=== PATIENT | female | born 1975 | race Caucasian/White ===

== ENCOUNTER 2023-02-12 07:30 | Inpatient (IN) | payer SELFPAY ==
[2023-02-12] VITALS (17 sets, daily range): BP systolic 102–124; BP diastolic 65–84; PULSE 74–120; RESP 14–20; TEMP 36.5–37.7; O2SAT 93–100; BMI 23.3
--- NOTE | 2023-02-12 07:44 | W.ED.ABDPA2 ---
Documented by User: OMER Rasheed 02/12/23 09:41 HPI - Abdominal Pain General: Chief Complaint: Abdominal Pain Stated Complaint: abd pain, n/v Time Seen by Provider: 02/12/23 07:31 Source: patient Mode of arrival: ambulatory Limitations: no limitations History of Present Illness: Patient is a very nice 57-year-old female presents to ED today along with her for evaluation of right-sided abdominal pain. She states symptoms started yesterday and by yesterday evening she was significantly uncomfortable. She states since then she has developed nausea, vomiting, and intermittent episodes of diarrhea. No fevers. Patient states she does have a history of remittent bowel obstructions none of which ever requiring surgery. The only surgery to her abdomen has been previous sections. She reports no chronic medical history. MD elicited complaint: abdominal pain Pertinent past history: none Onset (ago): day(s) (yesterday) Pain Consistency: constant Location: RUQ and RLQ Severity: severe Quality: cramping Radiation: none Migration to: no migration Exacerbating factors: nothing Relieving factors: nothing Associated Symptoms: Reports diarrhea, nausea and vomiting; Denies chills, dysuria, fever(s), hematochezia, hematemesis and melena Related Data: Patient : No Review of Systems Const: Denies: fever(s), chills, body aches, fatigue or malaise Card: Denies: chest pain Resp: Denies: dyspnea GI: Reports: abdominal pain, nausea, vomiting and diarrhea; Denies: hematemesis, hematochezia or melena : Denies: flank pain, difficulty voiding, dysuria, urinary frequency, urinary urgency, urinary hesitancy or pelvic pain Musc: Denies: neck pain, back pain, extremity pain or joint pain Skin/Breast: Denies: rash Neuro: Denies: headache(s), numbness in extremities, weakness in extremities, sensory changes or dizziness Physical Exam Const: COMMON NORMALS: no acute distress, average body habitus, patient oriented x3, no limitations, healthy appearing, alert and well nourished ORIENTATION/CONSCIOUSNESS: Yes awake, Yes oriented to person, Yes oriented to place and Yes oriented to time HENMT: COMMON NORMALS: normocephalic and atraumatic HEAD & SCALP: normal to inspection, normocephalic and atraumatic Eye: COMMON NORMALS: no scleral icterus Resp: COMMON NORMALS: normal respiratory effort and clear to auscultation bilaterally AUSCULTATION: clear to auscultation bilaterally Cardio: COMMON NORMALS: regular rate and regular rhythm RATE: regular rate RHYTHM: regular rhythm GI: COMMON NORMALS: Normal to inspection, nondistended, normoactive bowel sounds present, Soft to palpation, No hepatosplenomegaly present and no masses INSPECTION: Yes normal to inspection AUSCULTATION: Yes Hypoactive bowel sounds present PALPATION: Yes Soft to palpation, Yes Tenderness to palpation present (GI) (throughout R side of abdomen), Yes Guarding due to palpation present (GI), No Rigid due to palpation and Yes No hepatosplenomegaly present : COMMON NORMALS: Yes no CVA tenderness BLADDER/KIDNEY EXAM: Yes no CVA tenderness Back/Pelvis: COMMON NORMALS: no CVA tenderness, thoracic and lumbar spine normal to inspection, no thoracic nor lumbar tenderness and thoraco-lumbar ROM normal Extremity: COMMON NORMALS: normal to inspection GENERAL: Yes normal exam except as noted Neuro: ANGIE COMA SCALE: document GCS findings [place] coma scale eye opening: Spontaneous [place] coma scale verbal response: Orientated Angie coma scale motor response: Obey commands [place] coma scale total score: 15 COMMON NORMALS: patient oriented x3, moves all extremities, no focal motor deficits and no sensory deficits noted SENSORIUM/ORIENTATION: Yes alert, Yes oriented to person, Yes oriented to place and Yes oriented to time Skin: COMMON NORMALS: no rashes or lesions noted GENERAL SKIN EXAM: no rashes or lesions noted Course Consultations: Consultation #1: Dr. Vizcarra-accepts admission Vital Signs: Vital signs: Vital Signs Temperature 97.7 F 02/12/23 09:11 Pulse Rate 81 02/12/23 09:11 Respiratory Rate 14 02/12/23 09:11 Blood Pressure 124/84 02/12/23 09:11 Pulse Oximetry 100 02/12/23 09:11 Oxygen Delivery Me thod Room Air 02/12/23 09:11 MDM - Abdominal Pain Medical Decision Making Patient with appendicitis on her CT scan. White count is 16,000 with a normal lactate. Remainder of labs are fairly unremarkable. Vital signs are stable. She was started on IV Zosyn and I have spoken to Dr. Vizcarra for admission. Chart reviewed and patient discussed with midlevel. Agree with assessment and plan. Lab Data 02/12/23 07:55 02/12/23 07:55 Labs/Radiology: Laboratory Results WBC 16.07 10^3/uL (3.29-11.43) H 02/12/23 07:55 RBC 4.49 10^6/uL (3.85-5.65) 02/12/23 07:55 Hgb 12.90 g/dL (11.27-16.99) 02/12/23 07:55 Hct 39.1 % (36-47) 02/12/23 07:55 MCV 87.1 fl (85-98) 02/12/23 07:55 MCH 28.7 pg (27-33) 02/12/23 07:55 MCHC 33.0 g/dL (30-55) 02/12/23 07:55 RDW 12.9 % (12.1-15.1) 02/12/23 07:55 Plt Count 239 10^3/cmm (157-399) 02/12/23 07:55 MPV 10.5 fL (7.4-10.4) H 02/12/23 07:55 Neut % (Auto) 86.4 % 02/12/23 07:55 Lymph % (Auto) 4.5 % 02/12/23 07:55 [place] % (Auto) 8.2 % 02/12/23 07:55 Eos % (Auto) 0.1 % 02/12/23 07:55 Baso % (Auto) 0.4 % 02/12/23 07:55 Neut # (Auto) 13.89 10^3/uL (1.8-7.7) H 02/12/23 07:55 Lymph # (Auto) 0.7 10^3/uL (0.8-4.8) L 02/12/23 07:55 [place] # (Auto) 1.3 10^3/uL (0.2-0.9) H 02/12/23 07:55 Eos # (Auto) 0.0 10^3/uL (0.0-0.8) 02/12/23 07:55 Baso # (Auto) 0.1 10^3/uL (0.0-0.1) 02/12/23 07:55 Nucleated RBC % (auto) 0 % 02/12/23 07:55 Nucleated RBCs # 0.0 /100WBC 02/12/23 07:55 Sodium 133 mmol/L (136-145) L 02/12/23 07:55 Potassium 4.0 mmol/L (3.5-5.1) 02/12/23 07:55 Chloride 98 mmol/L (98-107) 02/12/23 07:55 Carbon Dioxide 23 mmol/L (22-29) 02/12/23 07:55 Anion Gap 16.0 (5-19) 02/12/23 07:55 BUN 7 mg/dL (6-20) 02/12/23 07:55 Creatinine 0.6 mg/dL (0.5-0.9) 02/12/23 07:55 GFR Calculation 106.3 mL/min (90-130) 02/12/23 07:55 Glucose 129 mg/dL (65-115) H 02/12/23 07:55 Calculated Osmolality 276 mOsm/kg (285-295) L 02/12/23 07:55 Lactic Acid 1.6 mmol/L (0.5-2.2) 02/12/23 07:55 Calcium 9.1 mg/dL (8.5-10.5) 02/12/23 07:55 Total Bilirubin 0.8 mg/dL (0.15-1.2) 02/12/23 07:55 AST 15 U/L (0-32) 02/12/23 07:55 ALT 13 U/L (0-33) 02/12/23 07:55 Alkaline Phosphatase 59 U/L (35-105) 02/12/23 07:55 Total Protein 6.9 g/dL (6.6-8.7) 02/12/23 07:55 Albumin 4.3 g/dL (3.5-5.2) 02/12/23 07:55 Globulin 2.6 g/dL (1.3-4.6) 02/12/23 07:55 Lipase 16 U/L (13-60) 02/12/23 07:55 HCG, Qual Negative (Negative) 02/12/23 07:55 Urine Color Dark yellow (Yellow) 02/12/23 08:00 Urine Appearance Cloudy (CLEAR) A 02/12/23 08:00 Urine pH 7 (5-7) 02/12/23 08:00 Ur Specific [place] 1.015 (1.005-1.030) 02/12/23 08:00 Urine Protein 1+ (Negative) H 02/12/23 08:00 Urine Glucose (UA) Norm (Normal) 02/12/23 08:00 Urine Ketones 3+ (Negative) H 02/12/23 08:00 Urine Blood Neg (Negative) 02/12/23 08:00 Urine Nitrate Negative (Negative) 02/12/23 08:00 Urine Bilirubin Neg (Negative) 02/12/23 08:00 Urine Urobilinogen Norm mg/dL (Negative) 02/12/23 08:00 Ur Leukocyte Esterase Negative (Negative) 02/12/23 08:00 Urine RBC 0-4 /hpf (0-2) H 02/12/23 08:00 Urine WBC 5-10 /hpf (0-5) H 02/12/23 08:00 Ur Squamous Epith Cells 15-25 /hpf (0-5) H 02/12/23 08:00 Amorphous Sediment Not Reportable 02/12/23 08:00 Urine Bacteria 1+ /hpf (NONE) H 02/12/23 08:00 Urine Mucus 3+ /hpf 02/12/23 08:00 Discharge Plan Discharge Patient Disposition: Admitted As Inpatient Clinical Impression: Acute appendicitis Condition: Stable Prescriptions: No Action No Known Home Medications Referrals: Trupti Hutton FNP [Primary Care Provider] - Coding Level of Care Code ED Electromedical Service Engineer for Chg Fwd Documented by User: Musa Ontiveros DO 02/12/23 09:39 HPI - Abdominal Pain General: Chief Complaint: Abdominal Pain Stated Complaint: abd pain, n/v Time Seen by Provider: 02/12/23 07:31 Physical Exam Neuro: ANGIE COMA SCALE: document GCS findings [place] coma scale total score: 15 Course Vital Signs: Vital signs: Vital Signs Temperature 97.7 F 02/12/23 09:11 Pulse Rate 81 02/12/23 09:11 Respiratory Rate 14 02/12/23 09:11 Blood Pressure 124/84 02/12/23 09:11 Pulse Oximetry 100 02/12/23 09:11 Oxygen Delivery Me thod Room Air 02/12/23 09:11 MDM - Abdominal Pain Medical Decision Making Patient with appendicitis on her CT scan. White count is 16,000 with a normal lactate. Remainder of labs are fairly unremarkable. Vital signs are stable. Chart reviewed and patient discussed with midlevel. Agree with assessment and plan. Lab Data 02/12/23 07:55 02/12/23 07:55 Labs/Radiology: Laboratory Results WBC 16.07 10^3/uL (3.29-11.43) H 02/12/23 07:55 RBC 4.49 10^6/uL (3.85-5.65) 02/12/23 07:55 Hgb 12.90 g/dL (11.27-16.99) 02/12/23 07:55 Hct 39.1 % (36-47) 02/12/23 07:55 MCV 87.1 fl (85-98) 02/12/23 07:55 MCH 28.7 pg (27-33) 02/12/23 07:55 MCHC 33.0 g/dL (30-55) 02/12/23 07:55 RDW 12.9 % (12.1-15.1) 02/12/23 07:55 Plt Count 239 10^3/cmm (157-399) 02/12/23 07:55 MPV 10.5 fL (7.4-10.4) H 02/12/23 07:55 Neut % (Auto) 86.4 % 02/12/23 07:55 Lymph % (Auto) 4.5 % 02/12/23 07:55 [place] % (Auto) 8.2 % 02/12/23 07:55 Eos % (Auto) 0.1 % 02/12/23 07:55 Baso % (Auto) 0.4 % 02/12/23 07:55 Neut # (Auto) 13.89 10^3/uL (1.8-7.7) H 02/12/23 07:55 Lymph # (Auto) 0.7 10^3/uL (0.8-4.8) L 02/12/23 07:55 [place] # (Auto) 1.3 10^3/uL (0.2-0.9) H 02/12/23 07:55 Eos # (Auto) 0.0 10^3/uL (0.0-0.8) 02/12/23 07:55 Baso # (Auto) 0.1 10^3/uL (0.0-0.1) 02/12/23 07:55 Nucleated RBC % (auto) 0 % 02/12/23 07:55 Nucleated RBCs # 0.0 /100WBC 02/12/23 07:55 Sodium 133 mmol/L (136-145) L 02/12/23 07:55 Potassium 4.0 mmol/L (3.5-5.1) 02/12/23 07:55 Chloride 98 mmol/L (98-107) 02/12/23 07:55 Carbon Dioxide 23 mmol/L (22-29) 02/12/23 07:55 Anion Gap 16.0 (5-19) 02/12/23 07:55 BUN 7 mg/dL (6-20) 02/12/23 07:55 Creatinine 0.6 mg/dL (0.5-0.9) 02/12/23 07:55 GFR Calculation 106.3 mL/min (90-130) 02/12/23 07:55 Glucose 129 mg/dL (65-115) H 02/12/23 07:55 Calculated Osmolality 276 mOsm/kg (285-295) L 02/12/23 07:55 Lactic Acid 1.6 mmol/L (0.5-2.2) 02/12/23 07:55 Calcium 9.1 mg/dL (8.5-10.5) 02/12/23 07:55 Total Bilirubin 0.8 mg/dL (0.15-1.2) 02/12/23 07:55 AST 15 U/L (0-32) 02/12/23 07:55 ALT 13 U/L (0-33) 02/12/23 07:55 Alkaline Phosphatase 59 U/L (35-105) 02/12/23 07:55 Total Protein 6.9 g/dL (6.6-8.7) 02/12/23 07:55 Albumin 4.3 g/dL (3.5-5.2) 02/12/23 07:55 Globulin 2.6 g/dL (1.3-4.6) 02/12/23 07:55 Lipase 16 U/L (13-60) 02/12/23 07:55 HCG, Qual Negative (Negative) 02/12/23 07:55 Urine Color Dark yellow (Yellow) 02/12/23 08:00 Urine Appearance Cloudy (CLEAR) A 02/12/23 08:00 Urine pH 7 (5-7) 02/12/23 08:00 Ur Specific [place] 1.015 (1.005-1.030) 02/12/23 08:00 Urine Protein 1+ (Negative) H 02/12/23 08:00 Urine Glucose (UA) Norm (Normal) 02/12/23 08:00 Urine Ketones 3+ (Negative) H 02/12/23 08:00 Urine Blood Neg (Negative) 02/12/23 08:00 Urine Nitrate Negative (Negative) 02/12/23 08:00 Urine Bilirubin Neg (Negative) 02/12/23 08:00 Urine Urobilinogen Norm mg/dL (Negative) 02/12/23 08:00 Ur Leukocyte Esterase Negative (Negative) 02/12/23 08:00 Urine RBC 0-4 /hpf (0-2) H 02/12/23 08:00 Urine WBC 5-10 /hpf (0-5) H 02/12/23 08:00 Ur Squamous Epith Cells 15-25 /hpf (0-5) H 02/12/23 08:00 Amorphous Sediment Not Reportable 02/12/23 08:00 Urine Bacteria 1+ /hpf (NONE) H 02/12/23 08:00 Urine Mucus 3+ /hpf 02/12/23 08:00 Discharge Plan Discharge Patient Disposition: Admitted As Inpatient Clinical Impression: Acute appendicitis Condition: Stable Prescriptions: No Action No Known Home Medications Referrals: Trupti Hutton FNP [Primary Care Provider] - Coding Level of Care Code ED Electromedical Service Engineer for Bere John
--- NOTE | 2023-02-12 07:48 | CT_ITS ---
WS: [id number] CT ABDOMEN PELVIS TECHNIQUE: Contrast-enhanced CT of the abdomen and pelvis with coronal and sagittal reformatted image s. CLINICAL INFORMATION: R abdominal pain, N/V COMPARISON: None. DLP: 399.[address] scans at [facility] use at least one of these dose optimization techniques: automated e xposure control; mA and/or kV adjustment per patient size (includes targeted exams where dose is matc hed to clinical indication); or iterative reconstruction. FINDINGS: Enhancing dilated fluid-filled appendix in the RIGHT lower quadrant consistent with acute appendiciti s. Large appendicolith at the base of the appendix measuring 12 mm. Additional smaller appendicoliths within the body of the appendix. Surrounding inflammatory changes with a trace amount of fluid in th e RIGHT paracolic gutter. No drainable abscess or fluid collection. No free air. Dilated fluid-filled appendix measures 11 mm in transverse dimension. Bulky fibroid uterus. Largest fibroid eccentric to the LEFT measuring 3.8 x 3.5 cm. Small amount of f ree fluid in the cul-de-sac. RIGHT ovarian cyst measuring 2.7 cm. Urine distended bladder. Sigmoid di verticulosis. No evidence of acute diverticulitis. Lung bases are well aerated. Normal GE junction. Normal spleen. Diffuse fatty filtration of the liver . Normal portal vein and splenic vein. Normal pancreas. Normal caliber abdominal aorta. Adrenal gland s are normal. Normal renal parenchymal enhancement. No hydronephrosis. Slight anterolisthesis L4 on L 5. Incidental limbus vertebra L3-L4 and L4-L5. IMPRESSION: 1. Findings compatible with acute appendicitis with fluid distended enhancing appendix with surround ing induration. Prominent appendicoliths. 2. Small amount of fluid in the RIGHT pericolic gutter. No drainable abscess or fluid collection. No free air. 3. Bulky fibroid uterus described above. 4. Partially visualized bilateral breast nodules measuring 12 mm on the LEFT with peripheral calcifi cation and 9 mm on the RIGHT. Recommend bilateral diagnostic mammography and ultrasound. No prior ines mograms available 5. No other acute findings. Notified OMER Rasheed at 02/12/2023 9:19 AM.
[2023-02-12] MEDS: morphine 4 mg/mL SDV 1 mL IVP (07:59)
[2023-02-12] MEDS: ondansetron 2 mg/ML SDV 2 mL 4 MG IVP ×3 (07:59→21:14)
[2023-02-12 08:04] LABS: Basophils # 0.1 10^3/uL (0.0-0.1); Basophils % 0.4 %; Eosinophils % 0.1 %; Hematocrit 39.1 % (36-47); Lymphocytes # 0.7 10^3/uL (0.8-4.8); Lymphocytes % 4.5 %; Mean Corpuscular Hemoglobin 28.7 pg (27-33); Mean Corpuscular Volume 87.1 fl (85-98); Mean Platelet Volume 10.5 fL (7.4-10.4); Monocytes # 1.3 10^3/uL (0.2-0.9); Monocytes % 8.2 %; Neutrophils # 13.89 10^3/uL (1.8-7.7); Neutrophils % 86.4 %; Nucleated Red Blood Cells % 0 %; Platelet Count 239 10^3/cmm (157-399); Red Blood Count 4.49 10^6/uL (3.85-5.65); Red Cell Distribution Width 12.9 % (12.1-15.1); White Blood Count 16.07 10^3/uL (3.29-11.43)
[2023-02-12] MEDS: sodium chloride 0.9% 1,000 ML 999 ML IV (08:09)
[2023-02-12 08:19] LABS: HCG, Serum Qual Negative (Negative)
[2023-02-12 08:23] LABS: Add Urine Microscopic? YES; Bilirubin Urine Neg (Negative); Blood Urine Neg (Negative); Glucose Urine UA Norm (Normal); Ketones Urine 3+ (Negative); Leukocyte Esterase Urine Negative (Negative); Nitrate Urine Negative (Negative); Protein Urine 1+ (Negative); Specific Gravity, Urine 1.015 (1.005-1.030); Urine Appearance Cloudy (CLEAR); Urine Color Dark Yellow (Yellow); Urobilinogen Urine Norm (Negative); pH Urine 7 (5-7)
[2023-02-12 08:24] LABS: Bacteria Urine 1+ /hpf; Mucus Urine 3+ /hpf; RBC Urine 0-4 /hpf (0-2); Squamous Epithelial Cell Urine 15-25 /hpf (0-5)
[2023-02-12 08:25] LABS: Alanine Aminotransferase 13 U/L (0-33); Albumin Level 4.3 g/dL (3.5-5.2); Alkaline Phosphatase 59 U/L (35-105); Aspartate Amino Transferase 15 U/L (0-32); Blood Urea Nitrogen 7 mg/dL (6-20); Calcium 9.1 mg/dL (8.5-10.5); Carbon Dioxide 23 mmol/L (22-29); Chloride 98 mmol/L (98-107); Globulin 2.6 g/dL (1.3-4.6); Glomerular Filtration Rate 106.3 mL/min (90-130); Glucose 129 mg/dL (65-115); Lipase 16 U/L (13-60); Osmolality Calculated 276 mOsm/kg (285-295); Sodium 133 mmol/L (136-145); Total Bilirubin 0.8 mg/dL (0.15-1.2); Total Protein 6.9 g/dL (6.6-8.7)
[2023-02-12] MEDS: iohexol 350 mg/mL 500 mL Btl (per mL) IV (08:51)
[2023-02-12 08:52] LABS: Lactic Sepsis W/Reflex 1.6 mmol/L (0.5-2.2)
[2023-02-12] MEDS: piperacillin-tazobactam 3.375 GM in sodium chloride 0.9% (plus) 50 ML IV ×4 (09:15→23:23)
[2023-02-12] MEDS: morphine 4 mg/mL SDV 1 mL 2 MG IVP (11:00)
--- NOTE | 2023-02-12 13:07 | PM.HP ---
Providers/Chief Complaint Admitting Physician: Mega Vizcarra DO Primary Care Provider: LEE Morton Chief Complaint: abd pain, n/v History of Present Illness Lorraine Butler is a 47 year old female sent to the hospital with 1 day history of epigastric and right lower quadrant abdominal pain. She reports nausea and vomiting but denies any hematemesis. Denies any diarrhea, constipation, hematochezia and/or melena. She does report fever and chills at home. Her pain is constant and does not radiate. Palpation makes pain worse. Nothing makes pain better. CT shows acute appendicitis Review of Systems General: Reports: 10 or more systems reviewed and unremarkable except in HPI and below Medications/Allergies Home Medications Medication Instructions Recorded Confirmed Last Taken Type No Known Home Medications 02/12/23 02/12/23 Unknown History Allergies Allergy/AdvReac Type Severity Reaction Status Date / Time No Known Allergies Allergy Verified 02/12/23 07:41 Vitals/I&O/Wt Last Vital Signs Temp 98.3 F 02/12/23 11:53 Pulse 74 02/12/23 11:53 Resp 18 02/12/23 11:53 BP 124/77 02/12/23 11:53 Pulse Ox 99 02/12/23 11:53 O2 Del Method Room Air 02/12/23 11:53 02/11/23 02/12/23 02/12/23 22:59 06:59 14:59 Intake Total 1050 / 1050 Balance 1050 / 1050 Weight last 48 hrs Weight 140 lb Physical Exam Narrative: General : Patient is well developed , no acute distress, oriented x3 Head : Normal cephalic, a-traumatic. Ears : Pinnae and external canal are normal. Hearing is normal. Eyes : PERRLA, Sclera and injection are normal. No conjunctival discharge. Nose : Mucous membranes are without erythema. Throat : buccal mucosa is normal, gums are without significant recession or hypertrophy. Lungs : Equal chest rise bilaterally, no use of accessory muscles, trachea is midline. Cor : Rate and rhythm are normal. Abdomen : Soft, ND, tender to palpation right lower quadrant, negative Rovsing's Extremities : No edema, no cyanosis or clubbing, dorsalis pedis pulses are present bilaterally, non-tender to palpation of calves. Upper extremities are normal bilaterally. Back : non-tender to palpation, no CVA tenderness. Neuro : CN II - XII intact, Upper and lower extremities have equal and full strength Data 02/12/23 07:55 02/12/23 07:55 A&P Assessment and plan (1) Acute appendicitis: Qualifiers: Acute appendicitis type: with localized peritonitis Appendicitis abscess presence: without abscess Appendicitis gangrene presence: without gangrene Appendicitis perforation presence: without perforation Qualified Code(s): K35.30 - Acute appendicitis with localized peritonitis, without perforation or gangrene Plan Laparoscopic Appendectomy The risks and benefits of the procedure, including but not limited to, bleeding, infection, scar, numbness, pain, damage to surrounding structures, conversion to an open procedure, were explained to the patient. He is understanding of the risks and wishes to proceed. Attestations Medical Necessity Statement*: Patient requires at least 1 night in the hospital for IV antibiotics after laparoscopic appendectomy Coding Level of Care Code 27376 Diagnoses Acute appendicitis K35.30 Acute appendicitis type: with localized peritonitis Appendicitis abscess presence: without abscess Appendicitis gangrene presence: without gangrene Appendicitis perforation presence: without perforation
--- NOTE | 2023-02-12 13:11 | ANES.PREANE2 ---
Pre-Anesthetic Assessment Height/Weight: Height 1.65 m Weight 63.503 kg Temp Pulse Resp BP Pulse Ox O2 Del Method 99.6 F 93 16 119/74 100 Room Air 02/12/23 13:11 02/12/23 13:11 02/12/23 13:11 02/12/23 13:11 02/12/23 13:11 02/12/23 13:11 Operation Date: 02/12/23 13:00 Proposed Procedures p Laparoscopic Appendectomy(Not Applicable) - Mega Vizcarra DO Familial anesthetic complications: None Was Beta Aleena taken within 24 hours: N/A Was Clonidine taken within 24 hours: N/A Last intake: Intake Last Liquid Date 02/11/23 Last Liquid Time 18:00 Last Solid Date 02/11/23 Last Solid Time 12:00 Social No alcohol and No tobacco Exam alert, oriented x 3, clear to auscultation bilaterally and regular rate & rhythm Airway Mallampati: Class II Dentition: full Anesthetic Plan ASA status: 1 Anesthesia: General Risk of > 500 ml blood loss (7ml/kg in children): No Medications/Allergies Home Medications Medication Instructions Recorded Confirmed Last Taken Type No Known Home Medications 02/12/23 02/12/23 Unknown History Allergies Allergy/AdvReac Type Severity Reaction Status Date / Time No Known Allergies Allergy Verified 02/12/23 07:41 Current Medications Generic Name Dose Route Start Last Admin Trade Name Freq PRN Reason Stop Dose Admin Morphine Sulfate 2 mg 02/12/23 10:26 02/12/23 11:00 Morphine 4 Mg/Ml Sdv 1 Ml IVP 2 mg Q4H PRN Administration SEVERE PAIN Data Anesthesia 02/12/23 07:55 02/12/23 07:55 Short CBC 02/12/23 Range/Units 07:55 WBC 16.07 H (3.29-11.43) 10^3/uL Hgb 12.90 (11.27-16.99) g/dL Hct 39.1 (36-47) % MCV 87.1 (85-98) fl Plt Count 239 (157-399) 10^3/cmm Neut % (Auto) 86.4 % Neut # (Auto) 13.89 H (1.8-7.7) 10^3/uL BMP 02/12/23 07:55 Sodium 133 L Potassium 4.0 Chloride 98 Carbon Dioxide 23 BUN 7 Creatinine 0.6 Glucose 129 H Calcium 9.1 Liver Function 02/12/23 Range/Units 07:55 Total Bilirubin 0.8 (0.15-1.2) mg/dL AST 15 (0-32) U/L ALT 13 (0-33) U/L Alkaline Phosphatase 59 (35-105) U/L Albumin 4.3 (3.5-5.2) g/dL Urine 02/12/23 Range/Units 08:00 Urine Color Dark yellow (Yellow) Urine Appearance Cloudy A (CLEAR) Urine pH 7 (5-7) Ur Specific [place] 1.015 (1.005-1.030) Urine Protein 1+ H (Negative) Urine Glucose (UA) Norm (Normal) Urine Ketones 3+ H (Negative) Urine Nitrate Negative (Negative) Urine Bilirubin Neg (Negative) Ur Leukocyte Esterase Negative (Negative) Urine RBC 0-4 H (0-2) /hpf Urine WBC 5-10 H (0-5) /hpf Cardiac Studies: No Data to Display
[2023-02-12] MEDS: scopolamine 1.5 Patch 1 PATCH TRANSDERMA (13:18)
[2023-02-12] MEDS: sodium chloride 0.9% 1,000 ML 30 ML IV (13:19)
[2023-02-12] MEDS: lidocaine-epi 2% 20 mL INJ (13:55)
--- NOTE | 2023-02-12 14:09 | P.OP_ITS ---
Operative Report Date of procedure: February 12, 2023 Pre-op diagnosis: Acute appendicitis Post-op diagnosis: Same Procedure done: Laparoscopic appendectomy Implants: None Specimens removed/disposition: Appendix Surgeon: Mega Vizcarra DO Anesthesia: General Estimated blood loss (mL): 5 Complications: None apparent Brief History: Is a very pleasant 47-year-old female presented to the hospital with abdominal pain. She was diagnosed with acute appendicitis. Laparoscopic appendectomy was indicated. The risk and benefits were explained and documented. Procedure: Patient was wheeled into the operative room and placed on the OR table in a supine position. Abdomen was inspected prepped and draped in usual sterile fashion. Time-out was performed and all present were in agreement. A 15 blade scalp was used to make a stab incision in the left upper quadrant and intra- abdominal insufflation was achieved using a Veress needle. After localizing the tissue incisions were made and a 12 millimeter trocar was placed into the umbilicus as well as a 5mm in the right lower quadrant and a 5 mm in the left lower quadrant . The appendix was identified and was mildly inflamed. I used the Voyant to ligate the mesoappendix at the base. I then used 2 PDS endo-loops to snare the base of the appendix. I then used the Voyant to ligate the appendix distally. The appendix was removed from the abdomen using an Endo- Catch bag through the umbilical incision. I examined the abdomen and no further pathology was identified. Hemostasis was noted. I then closed the umbilical site with a Willian-Kaylene and 0 Vicryl suture in a figure of 8 fashion. All ports removed. Skin was washed and dried. Incisions were closed with 4 O Vicryl in a subcuticular interrupted fashion. Skin glue was applied. Patient tolerated the procedure well.
--- NOTE | 2023-02-12 14:40 | ANE.PACU2 ---
Inpatient post-anesthesia follow up: Airway intact: Yes Vital signs: Temperature 98.3 F Pulse Rate 76 Respiratory Rate 18 Blood Pressure 100/63 Pulse Oximetry 98 Oxygen Delivery Me thod Room Air Oxygen Flow Rate 6 Fraction of Inspir ed Oxygen Hydration adequate: Yes Nausea and vomiting: No Pain level: 1 Mental status: Baseline
[2023-02-12] MEDS: HYDROcodone-acetaminophen 7.5-325 mg Tablet 1 TAB PO ×2 (15:49→20:25)
--- NOTE | 2023-02-12 18:18 | PC.NURSE ---
Patient has done well since arriving to the floor from the OR. Patient has ambulated in the hallway twice. Pain controlled with oral pain medication. Tolerating diet. Vitals stable. 200ml of urine output since 1500. Currently resting in bed, sipping ice water.
[2023-02-13] MEDS: HYDROcodone-acetaminophen 7.5-325 mg Tablet 1 TAB PO ×3 (02:15→13:48)
[2023-02-13 03:38] VITALS: BP 104/67; PULSE 78; RESP 17; TEMP 36.9; O2SAT 99
[2023-02-13 05:48] LABS: Basophils % 0.2 %; Hematocrit 33.4 % (36-47); Lymphocytes # 1.1 10^3/uL (0.8-4.8); Lymphocytes % 6.5 %; Mean Corpuscular HGB Conc 32.6 g/dL (30-55); Mean Corpuscular Hemoglobin 28.8 pg (27-33); Mean Corpuscular Volume 88.4 fl (85-98); Mean Platelet Volume 10.7 fL (7.4-10.4); Monocytes % 6.4 %; Neutrophils # 13.98 10^3/uL (1.8-7.7); Neutrophils % 86.5 %; Nucleated Red Blood Cells % 0 %; Platelet Count 230 10^3/cmm (157-399); Red Blood Count 3.78 10^6/uL (3.85-5.65); Red Cell Distribution Width 13.2 % (12.1-15.1); White Blood Count 16.19 10^3/uL (3.29-11.43)
[2023-02-13 06:12] LABS: Anion Gap 13.3 (5-19); Blood Urea Nitrogen 5 mg/dL (6-20); Calcium 8.5 mg/dL (8.5-10.5); Carbon Dioxide 23 mmol/L (22-29); Chloride 105 mmol/L (98-107); Glomerular Filtration Rate 131.1 mL/min (90-130); Glucose 128 mg/dL (65-115); Osmolality Calculated 283 mOsm/kg (285-295); Potassium 4.3 mmol/L (3.5-5.1); Sodium 137 mmol/L (136-145)
[2023-02-13] MEDS: piperacillin-tazobactam 3.375 GM in sodium chloride 0.9% (plus) 50 ML IV (06:33)
[2023-02-13 07:07] VITALS: BP 100/63; PULSE 76; RESP 18; TEMP 36.8; O2SAT 98
--- NOTE | 2023-02-13 07:53 | P.DS_ITS ---
Discharge Providers Date of Admission: 02/12/23 09:55 Date of Discharge: February 13, 2023 Attending Provider at Admission: Mega Vizcarra DO Attending Provider at Discharge: Mega Vizcarra DO Primary Care Provider: LEE Morton Diagnoses at Discharge Discharge Diagnosis (1) Acute appendicitis: Status: Acute Qualifiers: Acute appendicitis type: with localized peritonitis Appendicitis abscess presence: without abscess Appendicitis gangrene presence: without gangrene Appendicitis perforation presence: without perforation Qualified Code(s): K35.30 - Acute appendicitis with localized peritonitis, without perforation or gangrene Reason for Visit Reason for Visit: abd pain, n/v Hospital Course Hospital Course This a very pleasant 47-year-old female who presented to the hospital with acute appendicitis. She underwent laparoscopic appendectomy and was discharged home in good condition the next day. Physical Exam Narrative: General : Patient is well developed , no acute distress, oriented x3 Head : Normal cephalic, a-traumatic. Ears : Pinnae and external canal are normal. Hearing is normal. Eyes : PERRLA, Sclera and injection are normal. No conjunctival discharge. Nose : Mucous membranes are without erythema. Throat : buccal mucosa is normal, gums are without significant recession or hypertrophy. Lungs : Equal chest rise bilaterally, no use of accessory muscles, trachea is midline. Cor : Rate and rhythm are normal. Abdomen : Soft, ND, appropriately tender, no g/r/m Extremities : No edema, no cyanosis or clubbing, dorsalis pedis pulses are present bilaterally, non-tender to palpation of calves. Upper extremities are normal bilaterally. Back : non-tender to palpation, no CVA tenderness. Neuro : CN II - XII intact, Upper and lower extremities have equal and full strength Discharge Data Studies Completed and Pending Completed Studies During Hospitalization Category Date Time Status CT abdomen pelvis w con* [id number] Urgent Cat Scan 02/12/23 07:48 Completed Pending at discharge Category Date Time Status Pathology: Surgical [PTH] Routine Pth 02/12/23 14:10 Ordered Laboratory Results WBC 16.19 10^3/uL (3.29-11.43) H 02/13/23 05:15 RBC 3.78 10^6/uL (3.85-5.65) L 02/13/23 05:15 Hgb 10.90 g/dL (11.27-16.99) L 02/13/23 05:15 Hct 33.4 % (36-47) L 02/13/23 05:15 MCV 88.4 fl (85-98) 02/13/23 05:15 MCH 28.8 pg (27-33) 02/13/23 05:15 MCHC 32.6 g/dL (30-55) 02/13/23 05:15 RDW 13.2 % (12.1-15.1) 02/13/23 05:15 Plt Count 230 10^3/cmm (157-399) 02/13/23 05:15 MPV 10.7 fL (7.4-10.4) H 02/13/23 05:15 Neut % (Auto) 86.5 % 02/13/23 05:15 Lymph % (Auto) 6.5 % 02/13/23 05:15 [place] % (Auto) 6.4 % 02/13/23 05:15 Eos % (Auto) 0.0 % 02/13/23 05:15 Baso % (Auto) 0.2 % 02/13/23 05:15 Neut # (Auto) 13.98 10^3/uL (1.8-7.7) H 02/13/23 05:15 Lymph # (Auto) 1.1 10^3/uL (0.8-4.8) 02/13/23 05:15 [place] # (Auto) 1.0 10^3/uL (0.2-0.9) H 02/13/23 05:15 Eos # (Auto) 0.0 10^3/uL (0.0-0.8) 02/13/23 05:15 Baso # (Auto) 0.0 10^3/uL (0.0-0.1) 02/13/23 05:15 Nucleated RBC % (auto) 0 % 02/13/23 05:15 Nucleated RBCs # 0.0 /100WBC 02/13/23 05:15 Sodium 137 mmol/L (136-145) 02/13/23 05:15 Potassium 4.3 mmol/L (3.5-5.1) 02/13/23 05:15 Chloride 105 mmol/L (98-107) 02/13/23 05:15 Carbon Dioxide 23 mmol/L (22-29) 02/13/23 05:15 Anion Gap 13.3 (5-19) 02/13/23 05:15 BUN 5 mg/dL (6-20) L 02/13/23 05:15 Creatinine 0.5 mg/dL (0.5-0.9) 02/13/23 05:15 GFR Calculation 131.1 mL/min (90-130) H 02/13/23 05:15 Glucose 128 mg/dL (65-115) H 02/13/23 05:15 Calculated Osmolality 283 mOsm/kg (285-295) L 02/13/23 05:15 Lactic Acid 1.6 mmol/L (0.5-2.2) 02/12/23 07:55 Calcium 8.5 mg/dL (8.5-10.5) 02/13/23 05:15 Total Bilirubin 0.8 mg/dL (0.15-1.2) 02/12/23 07:55 AST 15 U/L (0-32) 02/12/23 07:55 ALT 13 U/L (0-33) 02/12/23 07:55 Alkaline Phosphatase 59 U/L (35-105) 02/12/23 07:55 Total Protein 6.9 g/dL (6.6-8.7) 02/12/23 07:55 Albumin 4.3 g/dL (3.5-5.2) 02/12/23 07:55 Globulin 2.6 g/dL (1.3-4.6) 02/12/23 07:55 Lipase 16 U/L (13-60) 02/12/23 07:55 HCG, Qual Negative (Negative) 02/12/23 07:55 Urine Color Dark yellow (Yellow) 02/12/23 08:00 Urine Appearance Cloudy (CLEAR) A 02/12/23 08:00 Urine pH 7 (5-7) 02/12/23 08:00 Ur Specific [place] 1.015 (1.005-1.030) 02/12/23 08:00 Urine Protein 1+ (Negative) H 02/12/23 08:00 Urine Glucose (UA) Norm (Normal) 02/12/23 08:00 Urine Ketones 3+ (Negative) H 02/12/23 08:00 Urine Blood Neg (Negative) 02/12/23 08:00 Urine Nitrate Negative (Negative) 02/12/23 08:00 Urine Bilirubin Neg (Negative) 02/12/23 08:00 Urine Urobilinogen Norm mg/dL (Negative) 02/12/23 08:00 Ur Leukocyte Esterase Negative (Negative) 02/12/23 08:00 Urine RBC 0-4 /hpf (0-2) H 02/12/23 08:00 Urine WBC 5-10 /hpf (0-5) H 02/12/23 08:00 Ur Squamous Epith Cells 15-25 /hpf (0-5) H 02/12/23 08:00 Amorphous Sediment Not Reportable 02/12/23 08:00 Urine Bacteria 1+ /hpf (NONE) H 02/12/23 08:00 Urine Mucus 3+ /hpf 02/12/23 08:00 Procedures Performed Let scopic appendectomy Vitals Last Vital Signs Temp 98.3 F 02/13/23 07:07 Pulse 76 02/13/23 07:07 Resp 18 02/13/23 07:07 BP 100/63 02/13/23 07:07 Pulse Ox 98 02/13/23 07:07 O2 Del Method Room Air 02/13/23 07:07 O2 Flow Rate 6 02/12/23 14:24 Discharge Plan Discharge Patient Disposition: Home Condition: Stable Prescriptions: New amoxicillin-pot clavulanate 875-125 mg tablet 1 tab PO BID Qty: 20 0RF Colace 100 mg capsule 100 mg PO BID Qty: 14 0RF hydrocodone-acetaminophen 10-325 mg tablet 1 tab PO Q6H PRN (Reason: pain) Qty: 20 0RF Rx Instructions: May take half of a tab at a time Discharge Orders: Discharge Order (Routine); Ordered 02/13/23 Ordered By: Mega Vizcarra Referrals: Mega Vizcarra DO [Physician] - 2 weeks Trputi Hutton FNP [Primary Care Provider] - 4-7 days Discharge Diet: Advance as tolerated Discharge Activity: Resume usual activity Patient Instructions: Opioid Safety, Post Anesthesia Care Activity Restrictions/Additional Instructions: Do not soak incision underwater for 2 weeks. Shower daily. Discharge Attestations Time Spent in Discharge Care*: less than 30 min Quality Metrics Clinical Quality Measures [ No reported AMI, CVA or VTE this stay] Coding Level of Care Code Acute Code for [facility] Diagnoses Acute appendicitis K35.30 Acute appendicitis type: with localized peritonitis Appendicitis abscess presence: without abscess Appendicitis gangrene presence: without gangrene Appendicitis perforation presence: without perforation
[2023-02-13] MEDS: sodium chloride 0.9% 1,000 ML 999 ML IV (08:56)
--- NOTE | 2023-02-13 10:30 | PC.CHAP ---
Pastoral Care Encounter/Spiritual Assessment Type of Contact [] Declined tetryl dissolver operator visit [] Patient/Family/Request visit [] Outpatient visit [] Follow-up visit [] Physician referral [] Code/Alert [x] Routine visit [] Staff referral [] Actively dying [] Patient sleeping [] Family support [] [] Out of room [] Palliative care [] [x] Receiving care in room [] Pre-surgical visit [] Trauma [] Long length of stay [] ICU visit [] Other: Relational/Emotional Strength [x] Patient feels connected with others/family/visitors/staff [] Distress [] Loneliness/isolation [] Abandonment Spirituality of Patient [x] Person of Purnima [] Attends Gnosticism of their Purnima [x] Believes in Prayer [] Reads Bible or Denominational materials [] There are Spiritual issues to be addressed Adult Psychiatrist Interventions [x] Prayer [x] Active listening [x] Non-anxious presence [x] Spiritual/emotional support [] Crisis/trauma care [x] Spiritual counseling [] Bereavement support [] Provided bereavement packet [] Provided Bible/devotional materials [] Provided toy/stuffed animal, coloring book to patient or family member [] Provided Communion [] Anointing/[place] [] Salvation [x] Completed spiritual assessment [] Other: Impact on Illness or Injury [] Angry [] Fearful [] Anxious [] Often cries [] Exhaustion [] Unable to work [] Unable to attend adventist [] Unable to walk/stand [] Unable to read [] Unable to drive [] Unable to eat/drink [] Unable to sleep [] Unable to be with family [] Patient intubated [] Other: Summary they are ding blood work waiting doctor has a postive attitude well go home at some point +1 Time spent with patient
[2023-02-13 11:14] VITALS: BP 109/72; PULSE 69; RESP 16; TEMP 36.9; O2SAT 98
== END 2023-02-13 14:39 | disposition home or self-care (01) | DRG 343 ==
LOC: ER 09:41 → MEDSURG 09:56
PROVIDERS: Physician Assistant; Admitting Provider Surgery; Emergency Provider Family Medicine; PCP Registered Nurse; Visit Provider Surgery
PROC: 0DTJ4ZZ Resection of Appendix, Percutaneous Endoscopic Approach (ICD-10-PCS; CPT 44970; principal; 2023-02-12 13:00)
DX: K35.30 Acute appendicitis with localized peritonitis, without perforation or gangrene (principal)
CPT/HCPCS: 36415; 74177; 80048; 80053; 81001; 83605; 83690; 84703; 85025; 88304; 96374; 96375; 99285; J1100; J2250; J2270; J2371; J2405; J2543; J2704; J2710; J3010; J3490; J7030; Q9967